=== PATIENT | female | born 2000 | race Asian ===

== ENCOUNTER 2023-07-01 09:36 | Day surgery (SDC) | payer OTHER ==
[2023-06-30 13:17] VITALS: BMI 29.9
[~2023-07-01 09:36] MED LIST: Fluorouracil 100 MG, Enoxaparin 25 MG, EPINEPHrine 0.3 MG in Ophthalmic Irrigation Solu... IRR SCH
[2023-07-01] MEDS ORDERED: Cyclopentolate 1% Opth Drop 2 ML BOT ONE (10:09)
[2023-07-01] MEDS ORDERED: PHENYLephrine 2.5% Ophth Soln 15 ml Bottle ONE (10:09)
[2023-07-01] MEDS ORDERED: PROPOFOL 20 ML ONE (10:28)
[2023-07-01] MEDS ORDERED: Lidocaine 2% PF 5 ML VIAL ONE (10:28)
[2023-07-01] MEDS ORDERED: fentaNYL 50 mcg/mL 1 mL Vial ONE ×2 (10:28→11:22)
[2023-07-01] MEDS ORDERED: Ondansetron PF 4 MG/2 ML Vial ONE (10:28)
[2023-07-01] MEDS ORDERED: Midazolam HCl 2 mg/2 ml Vial ONE (10:39)
[2023-07-01] MEDS ORDERED: Famotidine/PF 20 mg/2ml Vial ONE (10:42)
[2023-07-01] MEDS ORDERED: Dexamethasone 4 mg/ml Vial ONE (11:21)
[2023-07-01] MEDS ORDERED: Dexamethasone 20 MG/5 ML VIAL ONE (11:43)
== END 2023-07-01 15:00 | disposition home or self-care (01) ==
LOC: SDC 09:36
PROVIDERS: ATTEND Ophthalmology Retina Specialist
PROC: 08U13JZ Supplement of Left Eye with Synthetic Substitute, Percutaneous Approach (ICD-10-PCS; principal; 2023-07-01)
PROC: 08QE3ZZ Repair Right Retina, Percutaneous Approach (ICD-10-PCS; principal; 2023-07-01)
DX: H33.022 Retinal detachment with multiple breaks, left eye (principal); H33.321 Round hole, right eye
CPT/HCPCS: C1776; J0171; J1100; J1650; J2001; J2250; J2405; J2704; J3010; J9190; S0028